=== PATIENT | male | born 1990 | race Caucasian/White ===

== ENCOUNTER 2022-02-16 17:09 | Emergency (ER) | payer OTHER, SELFPAY ==
[2022-02-16 17:15] VITALS: BP 132/76; PULSE 92; RESP 16; TEMP 36.6; O2SAT 98
--- NOTE | 2022-02-16 18:39 | ED.SKABFB ---
HPI - Skin/Abscess/Foreign Bdy General Chief complaint: Skin/Abscess/Foreign Body Stated complaint: Left big toe ingrown toe nail Time Seen by Provider: 02/16/22 18:39 Source: patient Mode of arrival: Ambulatory History of Present Illness HPI narrative: Patient is a healthy 31-year-old male who presents with left toe pain. He said he had ingrown nail couple weeks ago he was put on antibiotics it went away however the last 2 days the other side has been swollen and painful. He said previously was able to drain and get the other 1 okay this 1 is quite painful he has been soaking it in Epsom salt baths 3 days a week. No fevers or chills Review of Systems Review of Systems Narrative: GENERAL: Denies chills,fever HEENT: Denies throat pain RESPIRATORY: Denies dyspnea, cough, wheezing CARDIOVASCULAR: Denies chest pain, palpitations GASTROINTESTINAL: Denies nausea, vomiting MUSCULOSKELETAL: Denies extremity pain, injury SKIN: See HPI NEUROLOGIC: Denies weakness, dizziness, headache, numbness 8 point review of systems is negative except for those stated above and HPI Exam Initial Vital Signs Initial Vital Signs: Vital Signs Temperature 97.8 F 02/16/22 17:15 Pulse Rate 92 H 02/16/22 17:15 Respiratory Rate 16 02/16/22 17:15 Blood Pressure 132/76 02/16/22 17:15 Pulse Oximetry 98 02/16/22 17:15 Oxygen Delivery Method 02/16/22 17:15 GENERAL: Well-appearing, well-nourished and in no acute distress. CARDIOVASCULAR: peripheral pulses in tact, cap refill <2 sec RESPIRATORY: No respiratory distress, speaks in full sentences without difficulty EXTREMITIES: Normal range of motion, no clubbing or edema. Neurovascularly intact NEUROLOGICAL: Cranial nerves II through XII grossly intact. Normal gait and speech. SKIN: Left great toe lateral side paronychia noted minimal erythema but swelling noted Procedures Abscess I/D I&D #1: Side (if applicable): left Local Anesthetic: lidocaine 1% Amount of anesthesia used (mL): 1 Technique: incised with #11 blade Amount of fluid expressed (mL): 0.28 Irrigation: No Course Orders Ordered: Discontinued Medications Lidocaine HCl (Lidocaine 1% (Pf)) 2 ml SUBCUT NOW ONE Stop: 02/16/22 18:43 Last Admin: 02/16/22 19:05 Dose: 2 ml Documented By: SHEFALI Vital Signs Vital signs: Vital Signs - 8 hr 02/16/22 17:15 02/16/22 19:06 Temperature 97.8 F Pulse Rate 92 H 89 Respiratory Rate 16 16 Blood Pressure 132/76 119/64 Pulse Oximetry 98 98 Oxygen Delivery Method Room Air Room Air MDM - Skin/Abscess/Foreign Bdy MDM Narrative Medical decision making narrative: Paronychia noted on left great toe. I&D actually did get some drainage out. Overall does not look terribly infected swelling has gone down. I do not think he needs antibiotics again at this point. I recommend watchful waiting. If it becomes more erythematous swollen or painful then he would need antibiotic Discharge Plan Departure Patient Disposition: Home Clinical Impression: Paronychia Instructions: DI for Paronychia Activity Restrictions/Additional Instructions: *You have been diagnosed with left great toe paronychia *What to do: Continue with warm soaks. Actually should start to get better now that pus is out. *Continue to take medications as directed Ibuprofen or Tylenol as directed if needed for pain *Follow up with your primary care provider in 2-3 days or call [phone] *Return to ER if you should have increased redness swelling pain fever or any new, worsening or concerning symptoms Visit Report Forms: Patient Portal/API
[2022-02-16] MEDS: LIDOCAINE 1% (PF) 2 ML SUBCUT (19:05)
[2022-02-16 19:06] VITALS: BP 119/64; PULSE 89; RESP 16; O2SAT 98
== END 2022-02-16 19:07 | disposition home or self-care (01) ==
PROVIDERS: Emergency Provider Emergency Medicine
DX: L03.032 Cellulitis of left toe (principal)
CPT/HCPCS: 10060; 99281; 99283

== ENCOUNTER 2022-10-06 18:24 | Emergency (ER) | payer OTHER, SELFPAY ==
[2022-10-06 18:36] VITALS: BP 131/74; PULSE 72; RESP 16; TEMP 36.6; O2SAT 99; BMI 29.2
--- NOTE | 2022-10-06 18:42 | DI.RAD.S_ITS ---
PROCEDURE: XR ANKLE RT MIN 3V INDICATIONS: right ankle pain concerns of rupture of achilles TECHNIQUE: 3 views of the ankle were acquired. COMPARISON: None. FINDINGS: Bones: No fractures or dislocations. Ankle mortise is normally aligned. No suspicious bony lesions. Soft tissues: Mild tibiotalar joint effusion. Achilles tendon appears normal. Normal Kager's fat pad. IMPRESSION: Mild tibiotalar joint effusion. Normal Kager's fat pad. Dictated by: Azar Caldera M.D. on 10/06/2022 at 17:59 Approved by: Azar Caldera M.D. on 10/06/2022 at 18:01
--- NOTE | 2022-10-06 20:06 | ED.LOWEXIN ---
HPI - Extremity Injury (Lower) General Chief Complaint: Extremity Injury, Lower Stated Complaint: thinks tore rt achilles tendon Time Seen by Provider: 10/06/22 20:02 Source: patient Mode of arrival: Family Vehicle Limitations: no limitations History of Present Illness HPI Narrative: Patient is a 32-year-old male here for evaluation of an injury to his right ankle. He states that he was playing softball. He rounded 1st base. He fell. He heard a pop and felt a pop in his Achilles tendon area. He is ruptured his left Achilles tendon in the past and that is what he thinks happened today. Has had difficulty walking on it since then. No other injuries from the event. Related Data Allergies Allergy/AdvReac Type Severity Reaction Status Date / Time No Known Drug Allergies Allergy Verified 10/06/22 18:39 Review of Systems Musculoskeletal Musculoskeletal: Reports system reviewed and no additional complaints, except as documented Integumentary/Breasts Skin/Breast: Reports system reviewed and no additional complaints, except as documented Neurologic Neurologic: Reports system reviewed and no additional complaints, except as documented Patient History Social History Smoking Status: Never smoker Smoking Status: Never smoker Substance Use Type: does not use Exam Initial Vital Signs Initial Vital Signs: Vital Signs Temperature 98 F 10/06/22 18:36 Pulse Rate 72 10/06/22 18:36 Respiratory Rate 16 10/06/22 18:36 Blood Pressure 131/74 10/06/22 18:36 Pulse Oximetry 99 10/06/22 18:36 Oxygen Delivery Method Room Air 10/06/22 18:36 Skin General: no rashes or lesions noted Neuro Sensory Exam: no sensory deficits noted Extrem Other: Patient has a palpable deficit in the Achilles tendon of the right ankle. Procedures Orthopedic Splinting/Casting Injury #1: Side: right Lower Extremity Injury Location: ankle Lower Extremity Immobilizer: posterior splint Other Orthopedic Equipment: crutches Post splinting neuro exam: intact Post splinting vascular exam: intact Placed by: Nursing Course Orders Ordered: ED Orders 10/06/22 18:42 XR ankle RT min 3V Stat Vital Signs Vital signs: Vital Signs - 8 hr 10/06/22 18:36 10/06/22 20:34 Temperature 98 F Pulse Rate 72 65 Respiratory Rate 16 16 Blood Pressure 131/74 123/72 Pulse Oximetry 99 99 Oxygen Delivery Method Room Air Room Air MDM - Extremity Injury (Lower) Imaging Data Extremity x-ray #1: Radiologist's Impression: PROCEDURE:? XR ANKLE RT MIN 3V ? INDICATIONS:? right ankle pain concerns of rupture of achilles ? TECHNIQUE:? 3 views of the ankle were acquired.? ? COMPARISON:? None. ? FINDINGS:? ? Bones:? No fractures or dislocations.? Ankle mortise is normally aligned.? No suspicious bony lesions.? ? Soft tissues:? Mild tibiotalar joint effusion.? Achilles tendon appears normal.? Normal Kager's fat pad.? ? ? IMPRESSION:? Mild tibiotalar joint effusion.? Normal Kager's fat pad. [facility] Narrative Medical decision making narrative: History and physical exam today is consistent with an Achilles tendon rupture. He was placed in a splint and placed on crutches periods instructed he needed to contact the Orthopedic Department on the [facility] for follow-up. He was given return precautions. Discharge Plan Departure Patient Disposition: Home Clinical Impression: Achilles tendon rupture Instructions: How to Use Crutches, Achilles Tendon Rupture, How to Take Care of Your Splint Activity Restrictions/Additional Instructions: According to your physical exam today I am highly suspicious that you have ruptured your Achilles tendon. I recommend that you use the crutches and leave the splint on and treated like a cast. You do need to follow-up with your medical department and [facility] for further treatment. Stand Alone Forms: Patient Portal/API
[2022-10-06 20:34] VITALS: BP 123/72; PULSE 65; RESP 16; O2SAT 99
== END 2022-10-06 20:35 | disposition home or self-care (01) ==
PROVIDERS: Emergency Provider Emergency Medicine
DX: S86.011A Strain of right Achilles tendon, initial encounter (principal); W18.30XA Fall on same level, unspecified, initial encounter; Y93.64 Activity, baseball
CPT/HCPCS: 29515; 73610; 99283